=== PATIENT | male | born 1965 | race Caucasian/White ===

== ENCOUNTER 2019-12-14 09:23 | Emergency (ER) | payer OTHER ==
[2019-12-14 09:38] VITALS: BP 113/75; PULSE 94; TEMP 99.5; BMI 25.1
--- NOTE | 2019-12-14 10:14 | PDOC ---
History of Present Illness - General Chief Complaint: Cold Symptoms Stated Complaint: FEVER Time Seen by Provider: 12/14/19 10:13 History Source: Patient Exam Limitations: No Limitations - History of Present Illness Initial Comments: 54 yo M no significant past medical history presents with fever, cough since last night. No recent travel, however his daughter has been coughing recently. Denies SOB, cp. Past History - Past Medical History Allergies/Adverse Reactions: Allergies Allergy/AdvReac Type Severity Reaction Status Date / Time No Known Allergies Allergy Verified 12/14/19 09:38 Home Medications: Ambulatory Orders NK [No Known Home Medication] 12/14/19 - Psycho Social/Smoking Cessation Hx Smoking History: Never smoked Hx Alcohol Use: No Drug/Substance Use Hx: No Review of Systems - Review of Systems Able to Perform ROS?: Yes Comments:: GENERAL/CONSTITUTIONAL: +Fever/chills. No weakness. HEAD, EYES, EARS, NOSE AND THROAT: No change in vision. No ear pain or discharge. No sore throat. CARDIOVASCULAR: No chest pain or shortness of breath. RESPIRATORY: . +Cough. No wheezing or hemoptysis. GASTROINTESTINAL: No nausea, vomiting, diarrhea or constipation. GENITOURINARY: No dysuria, frequency, or change in urination. MUSCULOSKELETAL: No joint or muscle swelling or pain. No neck or back pain. SKIN: No rash. NEUROLOGIC: +Headache. No vertigo, loss of consciousness, or change in strength/sensation. ENDOCRINE: No increased thirst. No abnormal weight change. HEMATOLOGIC/LYMPHATIC: No anemia, easy bleeding, or history of blood clots. ALLERGIC/IMMUNOLOGIC: No hives or skin allergy. *Physical Exam - Vital Signs Last Vital Signs Temp Pulse Resp BP Pulse Ox 99.5 F 94 H 18 113/75 12/14/19 09:29 12/14/19 09:29 12/14/19 09:29 12/14/19 09:29 - Physical Exam GENERAL: Awake, alert, and fully oriented, in no acute distress HEAD: No signs of trauma EYES: PERRLA, EOMI, sclera anicteric, conjunctiva clear ENT: Auricles normal inspection, hearing grossly normal, nares patent, oropharynx clear without exudates. Moist mucosa NECK: Normal ROM, supple, no lymphadenopathy, JVD, or masses LUNGS: Breath sounds equal, clear to auscultation bilaterally. No wheezes, and no crackles HEART: Regular rate and rhythm, normal S1 and S2, no murmurs, rubs or gallops ABDOMEN: Soft, nontender, normoactive bowel sounds. No guarding, no rebound. No masses EXTREMITIES: Normal range of motion, no edema. No clubbing or cyanosis. No cords, erythema, or tenderness NEUROLOGICAL: Cranial nerves II through XII grossly intact. Normal speech, normal gait. Motor and sensation intact SKIN: Warm, dry, normal turgor, no rashes or lesions noted. Medical Decision Making - Medical Decision Making Pt expressed some concerns about COVID19. He does not qualify for testing based on current criteria, however, patient was counseled to self-quarantine at home, return to the hospital only if having difficulty breathing. Discharge - Discharge Information Problems reviewed: Yes Clinical Impression/Diagnosis: Fever Qualifiers: Fever type: unspecified Qualified Code(s): R50.9 - Fever, unspecified Condition: Stable Disposition: HOME - Admission No - Follow up/Referral Referrals: Sonia Kaufman [facility] [Primary Care Provider] - - Patient Discharge Instructions Patient Printed Discharge Instructions: DI for Fever (Symptom) -- Adult, [facility]- Coronavirus Instructions Print Language: NEPALESE - Post Discharge Activity
== END 2019-12-14 14:35 | disposition home or self-care (01) ==
LOC: JER 09:23
DX: R50.9 Fever, unspecified (principal)
CPT/HCPCS: 71045-TC-FY; 99283-25

== ENCOUNTER 2021-07-13 11:39 | Emergency (ER) | payer OTHER ==
[2021-07-13 12:05] VITALS: BMI 29.9
[2021-07-13] MEDS ORDERED: SODIUM CHLORIDE 1,000 ML IV ONE (12:52)
[2021-07-13 13:43] LABS: HEMATOCRIT 40.2 % (35.4-49); HEMOGLOBIN 13.7 GM/dL (11.7-16.9); MCH 31.4 pg (25.7-33.7); MEAN CELL VOLUME 92.3 fl (80-96); MEAN PLT VOLUME 9.5 fl (7.5-11.1); PLATELET COUNT 195 10^3/uL (134-434); RBC 4.35 M/mm3 (4.00-5.60); RDW 12.3 % (11.9-15.9); WHITE BLOOD COUNT 2.9 K/mm3 (4.0-10.0)
[2021-07-13 14:14] LABS: CHLORIDE 108 mmol/L (98-107); SODIUM 140 mmol/L (136-145)
[2021-07-13 14:16] LABS: ANION GAP 4 MMOL/L (8-16); BLOOD UREA NITROGEN 14.2 mg/dL (7-18); CO2 28 mmol/L (21-32)
[2021-07-13 14:17] LABS: ALBUMIN 3.4 g/dl (3.4-5.0)
[2021-07-13 14:18] LABS: GLUCOSE,RANDOM 167 mg/dL (74-106)
[2021-07-13 14:19] LABS: SGOT/AST 47 U/L (15-37); SGPT/ALT 25 U/L (13-61)
[2021-07-13 14:20] LABS: BILIRUBIN,TOTAL 0.4 mg/dL (0.2-1); TOT PROT 7.8 g/dl (6.4-8.2)
[2021-07-13 14:21] LABS: ALK PHOS 77 U/L (45-117)
[2021-07-13 15:32] VITALS: BP 120/74; PULSE 78; TEMP 98
[2021-07-13 15:43] LABS: ANISOCYTOSIS 1+; MACROCYTOSIS 0; OVALOCYTE 1+; PLATELET ESTIMATE NORMAL
== END 2021-07-13 15:32 | disposition home or self-care (01) ==
LOC: JER 11:39
PROC: 3E0337Z Introduction of Electrolytic and Water Balance Substance into Peripheral Vein, Percutaneous Approach (ICD-10-PCS; principal; 2021-07-13)
DX: R42 Dizziness and giddiness (principal); J06.9 Acute upper respiratory infection, unspecified
CPT/HCPCS: 36415; 71046-TC-FY; 80053; 82550; 82553; 84443; 84484; 85025; 93005; 93010; 99284-25; C9803; U0003; U0005

== ENCOUNTER 2022-07-02 10:14 | Observation (INO) | payer OTHER ==
[2022-07-02 10:29] VITALS: BMI 27.1
[2022-07-02] MEDS ORDERED: SODIUM CHLORIDE 0.9% 500 ML INFUS.BAG IV ONE ×2 (12:14→14:27)
[2022-07-02 13:47] LABS: BASO % 0.9 % (0-2.0); HEMOGLOBIN 15.7 GM/dL (11.7-16.9); LYMPH % 43.9 % (8-40); MCH 30.7 pg (25.7-33.7); MCHC 33.3 g/dl (32.0-35.9); MEAN CELL VOLUME 92.2 fl (80-96); MEAN PLT VOLUME 10.6 fl (7.5-11.1); MONO % 7.1 % (3.8-10.2); NEUT % 47.1 % (42.8-82.8); PLATELET COUNT 194 10^3/uL (134-434); RBC 5.09 M/mm3 (4.00-5.60); RDW 12.1 % (11.9-15.9)
[2022-07-02 13:55] LABS: VENOUS O2 SATURATION 42.1 % (70-80); VENOUS PCO2 64.3 mmHg (38-52); VENOUS PH 7.322 (7.310-7.410)
[2022-07-02 14:02] LABS: CHLORIDE 102 mmol/L (98-107); SODIUM 140 mmol/L (136-145)
[2022-07-02 14:03] LABS: URINE APPEARANCE CLEAR; URINE BILIRUBIN NEGATIVE (NEGATIVE); URINE COLOR YELLOW; URINE GLUCOSE (UA) 3+ (NEGATIVE); URINE KETONE TRACE (NEGATIVE); URINE LEUK ESTERASE NEGATIVE (NEGATIVE); URINE NITRITE NEGATIVE (NEGATIVE); URINE PROTEIN NEGATIVE (NEGATIVE); URINE UROBILINOGEN 0.2 mg/dL (0.2-1.0)
[2022-07-02 14:05] LABS: CALCIUM 10.1 mg/dL (8.5-10.1)
[2022-07-02 14:06] LABS: ALBUMIN 4.5 g/dl (3.4-5.0); ANION GAP 7 MMOL/L (8-16); BLOOD UREA NITROGEN 34.5 mg/dL (7-18); CO2 31 mmol/L (21-32); MAGNESIUM 2.5 mg/dL (1.8-2.4)
[2022-07-02 14:08] LABS: CREATININE 1.6 mg/dL (0.55-1.3)
[2022-07-02 14:09] LABS: SGOT/AST 14 U/L (15-37); SGPT/ALT 26 U/L (13-61)
[2022-07-02 14:10] LABS: BILIRUBIN,TOTAL 0.6 mg/dL (0.2-1)
[2022-07-02 14:11] LABS: ALK PHOS 157 U/L (45-117); GLUCOSE,RANDOM 443 mg/dL (74-106); TOT PROT 8.9 g/dl (6.4-8.2)
[2022-07-02] MEDS ORDERED: INSULIN (NOVOLOG) ASPART 100 UNITS/ML 10ML VIAL SQ ONE (14:19)
[2022-07-02] MEDS ORDERED: DEXTROSE 50%-WATER 25 GM/50 ML DISP.SYRIN IVPUSH PRN (15:08)
[2022-07-02] MEDS ORDERED: ACETAMINOPHEN 325 MG TABLET (FP) PO PRN (15:09)
[2022-07-02 15:25] LABS: PHOSPHOROUS 4.1 mg/dL (2.5-4.9)
[2022-07-02] MEDS ORDERED: INSULIN (NOVOLOG) ASPART 100 UNITS/ML 10ML VIAL ONE (16:01)
[2022-07-02] MEDS: LACTATED RINGERS SOLUTION 1,000 ML/1,000 ML INFUS.BAG IV SCH ×2 (16:51→23:12)
[2022-07-02] MEDS: INSULIN (NOVOLOG) ASPART 100 UNITS/ML 10ML VIAL SQ SCH (18:13)
[2022-07-02] MEDS: INSULIN SLIDING SCALE (NOVOLOG) 1 VIAL SQ SCH ×2 (18:14→23:11)
[2022-07-02] MEDS ORDERED: ATORVASTATIN CA 40 MG TABLET (FP) PO SCH (22:00)
[2022-07-02] MEDS ORDERED: INSULIN (LEVEMIR) 100 UNITS/ML UNITS SQ SCH (22:00)
[2022-07-02] MEDS: HEPARIN NA (PORCINE) 5,000 UNITS/ML 1ML VIAL SQ SCH (23:11)
[2022-07-03] MEDS: INSULIN (NOVOLOG) ASPART 100 UNITS/ML 10ML VIAL SQ SCH ×3 (06:40→17:36)
[2022-07-03] MEDS: INSULIN SLIDING SCALE (NOVOLOG) 1 VIAL SQ SCH ×3 (06:41→16:35)
[2022-07-03] MEDS: HEPARIN NA (PORCINE) 5,000 UNITS/ML 1ML VIAL SQ SCH ×2 (06:42→14:13)
[2022-07-03] MEDS ORDERED: INSULIN (LEVEMIR) 100 UNITS/ML UNITS SQ SCH (09:00)
[2022-07-03 10:46] LABS: HEMATOCRIT 41.4 % (35.4-49); MCH 31.5 pg (25.7-33.7); MCHC 33.8 g/dl (32.0-35.9); MEAN CELL VOLUME 93.3 fl (80-96); MEAN PLT VOLUME 10.4 fl (7.5-11.1); PLATELET COUNT 175 10^3/uL (134-434); RBC 4.44 M/mm3 (4.00-5.60); RDW 11.9 % (11.9-15.9); WHITE BLOOD COUNT 3.1 K/mm3 (4.0-10.0)
[2022-07-03 11:11] LABS: CALCIUM 9.1 mg/dL (8.5-10.1)
[2022-07-03 11:13] LABS: BLOOD UREA NITROGEN 22.5 mg/dL (7-18); MAGNESIUM 2.2 mg/dL (1.8-2.4)
[2022-07-03 11:16] LABS: CREATININE 1.1 mg/dL (0.55-1.3)
[2022-07-03] MEDS ORDERED: NAPH,MB-DB/K PH,MBDB POWDER PACKET PO ONE (13:30)
[2022-07-03 15:14] VITALS: RESP 18
[2022-07-03] MEDS: LACTATED RINGERS SOLUTION 1,000 ML/1,000 ML INFUS.BAG IV SCH (15:15)
[2022-07-03 18:30] VITALS: BP 123/70; PULSE 67; TEMP 98.5
[2022-07-04] MEDS ORDERED: glipiZIDE 5 MG TABLET (FP) PO SCH (07:00)
== END 2022-07-03 19:04 | disposition home or self-care (01) ==
LOC: JER 10:14 → JERBED 14:29 → J5S 21:47
PROVIDERS: ADMIT Internal Medicine; ATTEND Internal Medicine
PROC: 3E023GC Introduction of Other Therapeutic Substance into Muscle, Percutaneous Approach (ICD-10-PCS; principal; 2022-07-02)
PROC: 3E013VG Introduction of Insulin into Subcutaneous Tissue, Percutaneous Approach (ICD-10-PCS; 2022-07-02)
PROC: 3E0337Z Introduction of Electrolytic and Water Balance Substance into Peripheral Vein, Percutaneous Approach (ICD-10-PCS; 2022-07-02)
DX: E11.9 Type 2 diabetes mellitus without complications (principal); N17.9 Acute kidney failure, unspecified
CPT/HCPCS: 36415; 76775-TC; 80048; 80053; 80061; 81003; 82010; 82803; 82962; 83036; 83735; 84100; 84443; 85025; 85027; 87086; 93005; 93010; 96372; 99285-25; C9803-CS; G0378; J1644; U0003; U0005

== ENCOUNTER 2025-03-22 07:00 | Day surgery (SDC) | payer OTHER ==
[2025-03-19 09:02] VITALS: BMI 24.4
[2025-03-22 08:27] VITALS: RESP 18
[2025-03-22] MEDS ORDERED: MIDAZOLAM HCL 2 MG/2 ML SINGLE DOSE VIAL ONE (10:05)
[2025-03-22 12:15] VITALS: BP 133/89; PULSE 66; TEMP 98
== END 2025-03-22 11:40 | disposition home or self-care (01) ==
LOC: JASU-SURG 07:00
PROVIDERS: ATTEND Urology
PROC: 0TF3XZZ Fragmentation in Right Kidney Pelvis, External Approach (ICD-10-PCS; principal; 2025-03-22 10:00)
DX: N20.0 Calculus of kidney (principal)